=== PATIENT | female | born 1980 | race Two or more races ===

== ENCOUNTER → 2024-02-25 | Outpatient (CLI) | payer BC, SELFPAY ==
--- NOTE | 2024-02-25 09:15 | XR_ITS ---
Examination: Shoulder,left, 3 views Technique: Shoulder AP internal rotation, AP external rotation, Y view shoulder, 3 views Exam date and time :February 25, 2024 0943 hours INDICATIONS: Left shoulder pain beginning 2 weeks ago. FINDINGS: Mild osteopenia No shoulder fracture or dislocation Mild narrowing glenohumeral joint No calcific tendinitis IMPRESSION: Mild narrowing glenohumeral joint
--- NOTE | 2024-02-25 09:15 | XR_ITS ---
Examination: Left elbow 3 views Technique: Elbow AP, oblique, lateral 3 views Exam date and time: February 25, 2024 0943 hours INDICATIONS: Left elbow pain 2 weeks. FINDINGS: Mild elbow osteoarthritis No elbow effusion No fracture or dislocation IMPRESSION: Mild elbow osteoarthritis.
[2024-02-25 10:30] LABS: Basophils % (Auto) 1 % (0-2.5); Eosinophils # (Auto) 0.1 Thou/mm3 (0.0-0.5); Eosinophils % (Auto) 1 % (0-10); Hematocrit 43.2 % (36.0-46.0); Hemoglobin 14.4 g/dL (12.0-16.0); Immature Granulocytes % (Auto) 0 % (0-0); Immature Granulocytes Auto 0.02 Thou/mm3 (0.00-0.00); Lymphocytes # (Auto) 2.4 Thou/mm3 (1.0-4.8); Lymphocytes % (Auto) 31 % (10-50); Mean Corpuscular HGB Conc 33.3 g/dl (31.0-37.0); Mean Corpuscular Hemoglobin 31.4 pg (25.0-35.0); Mean Corpuscular Volume 94 fL (80-100); Monocytes # (Auto) 0.7 Thou/mm3 (0.0-0.8); Monocytes % (Auto) 9 % (0-12); Neutrophils # (Auto) 4.5 Thou/mm3 (1.8-7.7); Neutrophils % (Auto) 58 % (37-80); Nucleated Red Blood Cell % 0 /100 WBC (0); Platelet Count 253 Thou/mm3 (140-440); RDW Standard Deviation 40.6 fL (36.4-46.3); Red Blood Count 4.58 Miln/mm3 (4.00-5.20); White Blood Count 7.8 Thou/mm3 (3.6-11.0)
[2024-02-25 11:11] LABS: Folate 12.15 ng/mL (>5.38); Vitamin B12 488 pg/mL (211-911)
[2024-02-25 11:14] LABS: Alanine Aminotransferase 33 U/L (10-49); Albumin, Serum 4.8 gm/dL (3.5-5.0); Albumin/Globulin Ratio 1.7 (1.2-2.2); Alkaline Phosphatase 81 U/L (46-116); Anion Gap 8 (7-16); Aspartate Amino Transferase 18 U/L (0-34); BUN/Creatinine Ratio 9 Ratio (12-20); Bilirubin,Total 0.9 mg/dL (0.3-1.2); Blood Urea Nitrogen 8 mg/dL (9-23); Calcium 9.6 mg/dL (8.3-10.6); Calcium (Corrected) 9.6 mg/dL (8.5-10.1); Carbon Dioxide 27.2 mMol/L (20.0-31.0); Chloride 105 mMol/L (98-107); Creatinine (Component) 0.9 mg/dL (0.6-1.3); Globulin 2.8 gm/dL (2.3-3.5); Glucose 173 mg/dL (74-106); Osmolality,Calculated 281 (275-295); Potassium 4.1 mMol/L (3.4-5.1); Sodium 140 mMol/L (136-145); Thyroid Stimulating Hormone 1.83 uIU/mL (0.55-4.78); Total Protein 7.6 gm/dL (5.7-8.2); eGFR > 60 See Note
== END | disposition home or self-care (01) ==
LOC: CDIM 09:13 → COPL 09:50
PROVIDERS: PCP Family Medicine; Referring Provider Student in an Organized Health Care Education/Training Program; Visit Provider Radiology Diagnostic Radiology
DX: M25.812 Other specified joint disorders, left shoulder (principal); M19.022 Primary osteoarthritis, left elbow; R20.2 Paresthesia of skin
CPT/HCPCS: 36415; 73030; 73080; 80053; 82607; 82746; 84443; 85025

== ENCOUNTER → 2024-03-16 | Outpatient (CLI) | payer BC, SELFPAY ==
[2024-03-16 08:44] LABS: Glucose Estimated Average 148 mg/dL (80-131); Hemoglobin A1C 6.8 % Hgb (4.8-6.0)
== END | disposition home or self-care (01) ==
LOC: COPL 07:09
PROVIDERS: PCP Family Medicine; Referring Provider Student in an Organized Health Care Education/Training Program; Visit Provider Student in an Organized Health Care Education/Training Program
DX: R73.09 Other abnormal glucose (principal)
CPT/HCPCS: 36415; 83036

== ENCOUNTER 2024-08-10 08:50 | Outpatient (AMB) | payer BC, SELFPAY ==
--- NOTE | 2024-08-10 09:14 | GYNCLNT_ITS ---
Vital Signs 08/10/24 09:34 Height 1.7 m Height Method Stated Weight 99.904 kg Weight Measurement Method Standing Scale BMI 34.4 BP 130/72 Blood Pressure Source Automatic Cuff Blood Pressure Location Right Upper Arm Position Sitting Respiration 17 Pulse 56 L Pulse Source Monitor Temp 97.8 F Temp Source Temporal Artery Scan Pulse Oximetry (%) 98 Oxygen Delivery Method Room Air Allergies/Home Meds Allergies & Medications Allergies No Known Allergies Allergy (Verified 08/10/24 09:15) Medication Reconciliation metformin 500 mg/5 mL oral solution 500 mg PO QDAY 08/10/24 [History Confirmed 08/10/24] Intake Visit Data Collection New Patient or Established: New Patient not seen in past 3 years at [facility] (considered New) Reason for Visit:: ANNUAL EXAM Seen by Clinical Staff ONLY (RN/MA): No 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 Not too irregular. No hot flashes no night sweats Last Pap was with her youngest child 11 years ago History of abnormal Pap with a biopsy about 12 years ago. 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 1. Little interest or pleasure in doing things: not at all 2. Feeling down, depressed, or hopeless: not at all Total score: 0 PHQ-9 3. Trouble falling or staying asleep, or sleeping too much: Not at all 4. Feeling tired or having little energy: Not at all 5. Poor appetite or overeating: Not at all 6. Feeling bad about yourself - or that you are a failure or have let yourself or your family down: Not at all 7. Trouble concentrating on things, such as reading the newspaper or watching television: Not at all 8. Moving or speaking so slowly that other people could have noticed? - Or the opposite - being so fidgety or restless that you have been moving around a lot more than usual: not at all 9. Thoughts that you would be better off or of hurting yourself in some way: Not at all Total score: 0 Source: Developed by Drs. Yusef Palomino, Darcie Salmeron, Reggie Betancourt and colleagues, with an educational shan from [employer]. 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 25 and 21 and 10-year-old daughters Tobacco History Smoking Status: Never smoker Second Hand Smoke Exposure: No Alcohol History Alcohol Intake: Never Domestic Abuse History Do You Feel Safe at Home: Yes History of Present Illness HPI Narrative Patient is a 44-year-old -0-4-3 last Pap 11 years ago presents for an annual exam. Her 's had a vasectomy for contraception. She has 3 daughters age 25, 21, and 10. She reports heavier vaginal bleeding with her cycles. We did discuss hormone treatment in the form of an IUD and patient states hormones make her crazy patient is interested in hearing about ablation. She she did have an abnormal Pap 12 years ago and had what sounds like a colposcopy she denies any other treatment. I have no records. States her cycles last 5 days and they are definitely heavier lasting longer. No hot flashes night vaginal dryness. Her daughters weighed 8 pounds 2 ounces 8 pounds 2 ounces and 8 pounds 11 ounces. She has not had a colonoscopy yet and her primary care at [facility] here for an annual. Exam General Limitations: no limitations General Appearance: alert, in no apparent distress, comfortable, cooperative, healthy appearing, well developed and well groomed Neck Neck exam: Present normal inspection, full ROM and trachea midline Chest Chest inspection: Present normal inspection and symmetric chest wall rise Exp Chest Breast: bilateral: other (Normal breast exam bilaterally) Resp Respiratory exam: Present normal lung sounds bilaterally Card Cardiovascular exam: Present regular rate, normal rhythm and normal heart sounds Abdominal Abdominal exam: Present soft and normal bowel sounds External exam: Present normal external exam Speculum exam: Present normal speculum exam Bimanual exam: Present normal bimanual exam (Uterus is anteverted normal-sized) Extremities Extremities exam: Present normal inspection and full ROM Psych Psychiatric exam: Present normal affect and normal mood Skin Skin exam: Present warm, dry, intact and normal color Office Procedures OB Clinic LOC & Office Proc's Nursing/Assessment Patient Status: Initial/New Patient OB Clinic Nursing Assessment: Medication Reconciliation, Update PMH in EMR and Vital Signs OB Clinic Coordination of Care: Consent,records obtained, informed consent, Education Simp Pt/Fam, Lab and Imaging orders and Staff clarify orders Miscellaneous Interventions: Breast Exam and Pelvic/Pap Smear Set up New Patient Charge New Patient Point Assignment: 1124 New Patient Point Charge: AGITATOR OPERATOR Level 4 (0732-3083) Assessment & Plan Diagnosis / Problem List (1) DUB (dysfunctional uterine bleeding): Status: Acute Assessment and Plan: Check CBC, FSH, estradiol, thyroid and pelvic ultrasound. Patient interested in ablation (2) Women's annual routine gynecological examination: Status: Acute Assessment and Plan: Pap with high-risk HPV is performed. Breast exam done and encouraged. Mammogram was ordered.
[2024-08-10 09:34] VITALS: BP 130/72; PULSE 56; RESP 17; TEMP 36.6; O2SAT 98; BMI 34.4
== END 2024-08-10 09:49 | disposition home or self-care (01) ==
LOC: HODSOBC 08:50
PROVIDERS: PCP Family Medicine; Referring Provider Family Medicine; Supervising Provider Obstetrics & Gynecology; Visit Provider Obstetrics & Gynecology
DX: Z01.419 Encounter for gynecological examination (general) (routine) without abnormal findings (principal); N93.8 Other specified abnormal uterine and vaginal bleeding
CPT/HCPCS: 99204; G0463

== ENCOUNTER → 2024-08-10 | Outpatient (CLI) | payer BC, SELFPAY ==
[2024-08-10 11:07] LABS: Glucose Estimated Average 108 mg/dL (80-131); Hemoglobin A1C 5.4 % Hgb (4.8-6.0)
[2024-08-10 11:20] LABS: Follicle Stimulating Hormone 5.96 mIU/mL (See Note)
[2024-08-10 11:28] LABS: Cholesterol 144 mg/dL (132-200); Free T4 (Free Thyroxine) 1.11 ng/dL (0.89-1.76); HDL Cholesterol 36 mg/dL (40-60); LDL Cholesterol,Calculated 96 mg/dL (0-130); Thyroid Stimulating Hormone 2.07 uIU/mL (0.55-4.78); Triglycerides 60 mg/dL (30-150)
[2024-08-22 06:50] LABS: Estradiol, Ultrasensitive* 67 pg/mL
== END | disposition home or self-care (01) ==
LOC: COPL 10:14
PROVIDERS: PCP Family Medicine; Referring Provider Obstetrics & Gynecology; Visit Provider Student in an Organized Health Care Education/Training Program
DX: E11.65 Type 2 diabetes mellitus with hyperglycemia (principal); N93.8 Other specified abnormal uterine and vaginal bleeding
CPT/HCPCS: 36415; 80061; 82670; 83001; 83036; 84439; 84443; 84481